=== PATIENT | female | born 1945 | race Caucasian/White ===

== ENCOUNTER 2018-12-15 10:27 | Emergency (ER) | payer OTHER, MEDICARE, SELFPAY ==
[2018-12-15 10:29] VITALS: BP 167/83; PULSE 77; RESP 14; TEMP 36.9; O2SAT 96; BMI 29.8
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
--- NOTE | 2018-12-15 11:30 | ED.RN ---
PT IS NOW IN ROOM 3 WITH SPOUSE.
== END 2018-12-15 12:00 | disposition home or self-care (01) ==
PROVIDERS: Emergency Provider Emergency Medicine
DX: T14.8XXA Other injury of unspecified body region, initial encounter (principal); M25.511 Pain in right shoulder; M25.512 Pain in left shoulder; V53.6XXA Passenger in pick-up truck or van injured in collision with car, pick-up truck or van in traffic accident, initial encounter; Y93.9 Activity, unspecified; Y92.9 Unspecified place or not applicable; E11.9 Type 2 diabetes mellitus without complications; I10 Essential (primary) hypertension; E78.00 Pure hypercholesterolemia, unspecified
CPT/HCPCS: 99283